=== PATIENT | female | born 1970 | race Caucasian/White ===

== ENCOUNTER 2016-05-17 06:36 | Day surgery (SDC) | payer OTHER ==
[~2016-05-17 06:36] MED LIST: CEFAZOLIN 1 GM/D5W RTU 1 GM/50 ML RTUPB IV PRN
[2016-05-17] MEDS ORDERED: MIDAZOLAM 2 MG/2 ML INJ ONE (06:44)
[2016-05-17] MEDS ORDERED: FENTANYL CITRATE INJ/PF 250 MCG/5 ML AMPULE ONE (06:44)
[2016-05-17] MEDS ORDERED: PROPOFOL INJ 200 MG/20 ML VIAL IV ONE ×2 (06:45→08:56)
[2016-05-17] MEDS ORDERED: ONDANSETRON HCL INJ/PF 4 MG/2 ML SDV ONE (06:45)
[2016-05-17] MEDS ORDERED: LIDOCAINE 0.5% INJ-PF (5 MG/ML) 50 ML SDV ONE (06:45)
[2016-05-17] MEDS ORDERED: LIDOCAINE 2% INJ (20 MG/ML) 20 ML MDV ONE (07:11)
[2016-05-17] MEDS ORDERED: NORMAL SALINE INJ/PF 0.9% 10 ML SDV ONE (07:12)
[2016-05-17] MEDS ORDERED: BUPIVACAINE HCL 0.5 % INJ/PF 30 ML SDV ONE (07:12)
[2016-05-17] MEDS: BACITRACIN INJ 50,000 UNIT VIAL ONE ×2 (09:15)
[2016-05-17] MEDS: POLYMYXIN B SULFATE INJ 500000 UNIT VIAL ONE ×2 (09:15)
--- NOTE | 2016-05-17 10:43 | SURGICARE DISCHARGE SUMMARY E ---
[facility] Discharge Summary NAME: TROY REDMAN AGE: 45Y ADMITTED: 05/17/2016 DISCHARGED: 05/17/2016 SURGICAL PROCEDURE: Correction of bunion via Jordan osteotomy with internal screw fixation, right foot. POSTOPERATIVE DIAGNOSIS: Hallux abductovalgus, right foot. SURGEON: Karol Ricks DPM QUICK TECHNICIAN: Ady Fitzgerald DPM HOSPITAL COURSE: Patient was admitted to [facility] with a chief complaint of a painful bunion on her right foot. She had a history of having this for a number of years. It was progressively getting worse and symptoms did not get better with conservative treatment. The patient underwent the above surgical procedure without any complications. She was given postoperative prescriptions for Dilaudid 4 mg #60, Phenergan 25 mg #30, and cephalexin 500 mg #4. She was dispensed a postoperative shoe and an ice pack and postoperative instructions. She was also instructed not to bear weight on the surgical foot. She was given a followup appointment in the doctor's office in 1 week, and the patient was discharged from [facility]. DICTATING PHYSICIAN: KAROL RICKS D.P.M. [id number] PHY#: [id number] ID: [id number] JOB#: [id number] ACCT: [id number] cc:KAROL RICKS DPM > MTDD
--- NOTE | 2016-05-17 11:23 | SURGICARE OPERATIVE REPORT E ---
[facility] Operative Report NAME: TROY REDMAN AGE: 45Y DATE OF SURGERY: 05/17/2016 ROOM: PREOPERATIVE DIAGNOSIS: HALLUX ABDUCTOVALGUS RIGHT FOOT. POSTOPERATIVE DIAGNOSIS: HALLUX ABDUCTOVALGUS RIGHT FOOT. OPERATION: Correction of bunion via Jordan osteotomy with internal screw fixation, right foot. SURGEON: PORFIRIO POLLOCK DPM DELIVERY ENGINEER: Ady Fitzgerald DPM DESCRIPTION OF PROCEDURE: Following induction of IV and regional local anesthesia, the right foot and leg were prepped and draped in the usual sterile manner. Pneumatic tourniquet was placed around the right ankle and inflated to 250 mmHg after exsanguination of the limb with the Esmarch bandage. The following surgical procedure was then performed: Correction of bunion via Jordan osteotomy with internal screw fixation, right foot. Attention was directed to the dorsal aspect of the first metatarsophalangeal joint of the right foot, where an approximately 5 cm dorsal linear incision was made. The incision was deepened via sharp dissection. All bleeders were clamped and Bovied as necessary for the purposes of hemostasis. A capsular incision was made in the same manner as the original skin incision. It was made medial to the extensor hallucis longus tendon. The capsule was reflected medially and laterally from the bone. Attention was then directed to the first interspace where utilizing blunt dissection, the transverse adductor tendon was identified, isolated and sharply incised. Attention was directed back to the hypertrophied median eminence of the first metatarsal head. Utilizing a Anastasia sagittal saw, this hypertrophied medial eminence was osteotomized parallel to the long axis of the bone and removed in total from the wound. An Ojrdan type osteotomy was then performed of the medial aspect of the first metatarsal head utilizing a Anastasia sagittal saw. This consisted of apex being distal, 2 wings, one plantar and one dorsal at approximately 60 degree angles to each other. These were amlhnno-mpr-qpucmul cuts. The capital fragment was then distracted and shifted laterally so that the head of the first metatarsal was now positioned over the sesamoid bones. The osteotomy was temporarily fixated with a 0.045 K-wire which was directed dorsal medial to plantar proximal. An x-ray was taken to make sure the K-wire was in good position and that the first metatarsophalangeal joint was in an anatomically correct position, which it was. A measure reamer was then threaded down the guidewire so that the hole could be reamed to accept the head of the screw and it was noted that a 20 mm, 3.0 cannulated screw would be needed. A 2.0 mm cannulated drill bit was then threaded down the guidewire and the distal aspect of the osteotomy was over drilled. The 20 mm 3.0 cannulated screw was then threaded down the guidewire and tightened down on itself. Because it was noted that the patient's bone was soft, a second screw would be used. This screw was placed lateral to the original screw. A 0.86 guidewire was used. It was directed from dorsal lateral to proximal plantar. An x-ray was taken and it was noted that this guidewire was in good position and was coming through the proximal cortex. The reamer measure was also threaded down the guidewire and it was noted that an 18 mm screw would be needed. A 1.7 mm drill bit was then threaded down the guidewire to overdrill the distal aspect of the osteotomy. The 18 mm 2.3 cannulated screw was threaded down the guidewire and it was noted that it could not be tightened all the way down. An x-ray was taken and it was noted that the guidewire had bent. The screw was removed and the bent portion of the guidewire at the plantar proximal aspect of the metatarsal was cut and removed and then the guidewire was removed. A new guidewire was threaded down and the 18 mm 2.3 cannulated screw was then threaded down the guidewire and tightened down on itself. X-rays were taken again. It was noted that the first metatarsophalangeal joint was in an anatomically correct position. It was also noted that the osteotomy was stably fixated. The redundant bone on the medial aspect of the first metatarsal was osteotomized parallel to the long axis of the bone and removed in toto from the wound. The medial aspect of the first metatarsal head was then rasped smooth. The area was then flushed with copious amounts of antibacterial saline solution. Bone wax was then applied to the medial aspect of the first metatarsal head. The capsule was then coapted and maintained utilizing simple interrupted sutures of 3-0 Vicryl. The extensor hallucis longus tendon was then lengthened via a Z-plasty lengthening and was sutured with a running locking suture of 3-0 FiberWire. The subcutaneous tissue was then coapted and maintained utilizing simple interrupted sutures of 4-0 Vicryl and the skin was coapted and maintained utilizing horizontal mattress sutures of 5-0 nylon. A final x-ray was taken and it was again noted that the sesamoids were in excellent position under the first metatarsal head and that the first metatarsophalangeal joint was in an anatomically correct position. The foot was then cleansed with an alcohol foam and a dry sterile dressing was then applied consisting of Carl silk, 4 by 4, Conform, Kerlix and Coban. The pneumatic tourniquet was released. It was noted that all digits were warm and viable. The patient was transferred to the recovery room. DICTATING PHYSICIAN: PORFIRIO POLLOCK D.P.M. [id number] PHY#: [id number] ID: [id number] JOB#: [id number] ACCT: [id number] cc:PORFIRIO POLLOCK DPM > KRISTEN
== END 2016-05-17 10:50 | disposition home or self-care (01) ==
LOC: SC 06:36
PROVIDERS: ATTEND Podiatrist Foot Surgery
PROC: 0QBN0ZZ Excision of Right Metatarsal, Open Approach (ICD-10-PCS; principal; 2016-05-17 07:30)
DX: M20.11 Hallux valgus (acquired), right foot (principal); K21.9 Gastro-esophageal reflux disease without esophagitis; Z88.0 Allergy status to penicillin; Z79.1 Long term (current) use of non-steroidal anti-inflammatories (NSAID); Z79.82 Long term (current) use of aspirin; Z88.8 Allergy status to other drugs, medicaments and biological substances; Z79.899 Other long term (current) drug therapy; Z86.73 Personal history of transient ischemic attack (TIA), and cerebral infarction without residual deficits
CPT/HCPCS: 28286; 73620; C1713 ×2; C1769 ×2; J2250; J3490 ×5; J0690; J3010; J2405; J2704; 01480

== ENCOUNTER → 2017-09-25 | Outpatient (CLI) | payer OTHER ==
--- NOTE | 2017-09-25 15:37 | WOMENS IMAGING REPORT ---
EXAM DESCRIPTION: BILAT SCREENING MAMMO W/CAD COMPLETED DATE/TIME: 09/25/2017 10:37 am REASON FOR STUDY: ROUTINE SCREENING;Z12.31 Z12.31 ENCNTR SCREEN MAMMOGRAM FOR MALIGNANT NEOPLASM OF RUY COMPARISON: 2012 TECHNIQUE: Standard craniocaudal and mediolateral oblique views of each breast recorded using digita l acquisition. LIMITATIONS: None. FINDINGS: No masses, calcifications or architectural distortion. No areas of suspicion. Read with the assistance of CAD. .[facility] - R2 Cenova Version 1.3 .[facility] Imaging - R2 Cenova Version 1.3 .[facility] - R2 Cenova Version 2.4 .[facility] [place] - R2 Cenova Version 2.4 .[facility] - R2 Tracing Lathe Set Up Operator Version 9.2 IMPRESSION: NORMAL MAMMOGRAM. BIRADS 1. BREAST DENSITY: b. There are scattered areas of fibroglandular density. BIRAD: 1 NEGATIVE RECOMMENDATION: ROUTINE SCREENING COMMENT: The patient has been notified of the results by letter per SA requirements. Additional no tification policies are in place for contacting patient with suspicious or incomplete findings. Quality ID #225: The [employer] [place] [employer] recommends an annual screening mammogram for women aged 40 years or over. This facility utilizes a reminder system to ensure that all patients receive reminder letters, and/or direct phone calls for appointments. This includes reminders for routine scr eening mammograms, diagnostic mammograms, or other Breast Imaging Interventions when appropriate. Th is patient will be placed in the appropriate reminder system. The [employer] [place] [employer] (ACR) has developed recommendations for screening MRI of the breast s in certain patient populations, to be used in conjunction with mammography. Breast MRI surveillanc e may be appropriate for women with more than 20% lifetime risk of developing breast cancer as deter mined by genetic testing, significant family history of the disease, or history of mantle radiation f or Hodgkins Disease. ACR Practice Guidelines 2008. TECHNICAL DOCUMENTATION: FINDING NUMBER: (1) ASSESSMENT: (1) JOB ID: [id number] [employer]- All Rights Reserved Reading location - IP/workstation name: [email or web address]
== END ==
LOC: WI 10:21
PROVIDERS: ATTEND Family Medicine
DX: Z12.31 Encounter for screening mammogram for malignant neoplasm of breast (principal)
CPT/HCPCS: 77067

== ENCOUNTER 2017-11-07 08:50 | Day surgery (SDC) | payer OTHER ==
[2017-11-07] MEDS ORDERED: POLYMYXIN B SULFATE INJ 500000 UNIT VIAL ONE (09:13)
[2017-11-07] MEDS ORDERED: LIDOCAINE 2% INJ (20 MG/ML) 20 ML MDV ONE (09:13)
[2017-11-07] MEDS ORDERED: BUPIVACAINE HCL 0.5 % INJ/PF 30 ML SDV ONE (09:13)
[2017-11-07] MEDS ORDERED: NORMAL SALINE INJ/PF 0.9% 10 ML SDV ONE (09:14)
[2017-11-07] MEDS ORDERED: BACITRACIN INJ 50,000 UNIT VIAL ONE (09:14)
[2017-11-07] MEDS ORDERED: FENTANYL CITRATE INJ/PF 100 MCG/2 ML AMPUL ONE ×2 (09:26)
[2017-11-07] MEDS ORDERED: PROPOFOL INJ 200 MG/20 ML VIAL IV ONE (09:26)
[2017-11-07] MEDS ORDERED: MIDAZOLAM 2 MG/2 ML INJ ONE (09:26)
[2017-11-07] MEDS ORDERED: DEXMEDETOMIDINE INJ 80 MCG/20 ML VIAL IV ONE (09:27)
[2017-11-07] MEDS ORDERED: BUPIVACAINE INJ/PF LIPOSOME/PF 266 MG/20 ML SDV ONE (10:19)
--- NOTE | 2017-11-07 11:58 | RADIOLOGY REPORT (SQ) ---
EXAM DESCRIPTION: NO CHG FLUORO; FOOT LEFT 2 VIEWS COMPLETED DATE/TIME: 11/07/2017 11:40 am REASON FOR STUDY: LT FOOT BUNIONECTOMY M20.12 HALLUX VALGUS (ACQUIRED), LEFT FOOT COMPARISON: 2014. FLUOROSCOPY TIME: 8 seconds 2 images saved to PACS. TECHNIQUE: Intra-operative images acquired during surgical procedure to evaluate progress. NUMBER OF IMAGES: 2 LIMITATIONS: None. FINDINGS: 2 images reveal pre-existing postoperative changes in the 2nd, 3rd, 4th distal metatarsals . New surgical changes related to great toe, status post bunionectomy and corrective osteotomy with solitary screw in place. Please correlate with operative note. IMPRESSION: IMAGE(S) OBTAINED DURING PROCEDURE. COMMENT: Quality ID 145: Final reports for procedures using fluoroscopy that document radiation exp osure indices, or exposure time and number of fluorographic images (if radiation exposure indices are not available) Please consult full operative report of the attending physician for description of the procedure. TECHNICAL DOCUMENTATION: JOB ID: [id number] [employer]- All Rights Reserved Reading location - IP/workstation name: [email or web address]
--- NOTE | 2017-11-07 11:58 | RADIOLOGY REPORT (SQ) ---
EXAM DESCRIPTION: NO CHG FLUORO; FOOT LEFT 2 VIEWS COMPLETED DATE/TIME: 11/07/2017 11:40 am REASON FOR STUDY: LT FOOT BUNIONECTOMY M20.12 HALLUX VALGUS (ACQUIRED), LEFT FOOT COMPARISON: 2014. FLUOROSCOPY TIME: 8 seconds 2 images saved to PACS. TECHNIQUE: Intra-operative images acquired during surgical procedure to evaluate progress. NUMBER OF IMAGES: 2 LIMITATIONS: None. FINDINGS: 2 images reveal pre-existing postoperative changes in the 2nd, 3rd, 4th distal metatarsals . New surgical changes related to great toe, status post bunionectomy and corrective osteotomy with solitary screw in place. Please correlate with operative note. IMPRESSION: IMAGE(S) OBTAINED DURING PROCEDURE. COMMENT: Quality ID 145: Final reports for procedures using fluoroscopy that document radiation exp osure indices, or exposure time and number of fluorographic images (if radiation exposure indices are not available) Please consult full operative report of the attending physician for description of the procedure. TECHNICAL DOCUMENTATION: JOB ID: [id number] [employer]- All Rights Reserved Reading location - IP/workstation name: [email or web address]
--- NOTE | 2017-11-07 12:21 | SURGICARE OPERATIVE REPORT E ---
[facility] Operative Report NAME: TROY REDMAN AGE: 47Y DATE OF SURGERY: 11/07/2017 ROOM: PREOPERATIVE DIAGNOSIS: HALLUX ABDUCTOVALGUS, LEFT FOOT. POSTOPERATIVE DIAGNOSIS: HALLUX ABDUCTOVALGUS, LEFT FOOT. OPERATION: Correction of bunion by Jordan osteotomy with internal fixation, left foot. SURGEON: PORFIRIO POLLOCK DPM AIRPORT DRIVER: Ady Fitzgerald DPM PROCEDURE: Following the induction of IV regional local anesthesia, the left foot and leg were prepped and draped in the usual sterile manner. A pneumatic tourniquet was placed around the left ankle and inflated to 250 mmHg, after exsanguination of the limb via Esmarch bandage. The following surgical procedures were then performed: Correction of bunion by Jordan osteotomy with internal fixation, left foot. Attention was directed to the dorsal aspect of the first metatarsophalangeal joint of the left foot, where an approximately 5-cm dorsolinear incision was made. The incision was deepened via sharp dissection. All bleeders were clamped and Bovied as necessary for the purposes of hemostasis. A capsule incision was made in the same manner as the original skin incision and was made medial to the extensor hallucis longus tendon. The incision was deepened via sharp dissection and it was reflected medially and laterally from the bone. Attention was then directed to the first interspace, where the transverse adductor tendon was identified and sharply incised utilizing tenotomy scissors. Attention was directed back to the medial aspect of the first metatarsal head. Utilizing a Oviceversa sagittal saw, the hypertrophied medial eminence was osteotomized parallel to the long axis of the bone and removed in total from the wound. An Jordan-type osteotomy was then performed with the apex being distal, the wings being plantar and dorsal at approximately 60 degrees. The dorsal wing was longer than the plantar. The hoaigyk-tqe-gwtkmxv osteotomy, the capital fragment was then distracted, shifted laterally, and impacted back on the bone, which sits at approximately 5-mm. The osteotomy was then temporarily fixated utilizing a 0.45 Guidewire which was directed from dorsal distal to plantar proximal. An x-ray was taken to make sure that the wire was in a good position and that the first metatarsophalangeal joint was now in a more anatomically corrected position. A reamer measure was threaded down the Guidewire and a hole was reamed to accept this head of the screw and it is noted that a 22-mm 3.0 cancellous screw would be needed. The distal aspect of the osteotomy was then drilled utilizing a 2.0 drill bit. The 22-mm 3.0 cancellous screw was then threaded down the guidewire and tightened down until the osteotomy was stably fixated. Another x-ray was taken to make sure that the screw was in a good position, which it was, and that the first metatarsophalangeal joint was still in the anatomically correct position. The redundant bone in the medial aspect of the first metatarsal head was osteotomized utilizing a Oviceversa sagittal saw and removed from the wound. The medial aspect of the bone was then rasped smooth utilizing a Oviceversa rasp. The site was then flushed with copious amounts of antibacterial saline solution. It was noted at this time that the inspection to the medial aspect of the first metatarsal head, that there was a cyst present and that this left the screw exposed. The defect was filled with DBX bone putty and then covered with bone wax. The capsule was then coapted and maintained utilizing simple interrupted sutures of 3-0 Vicryl. The extensor hallucis longus tendon was then tacked medially utilizing simple interrupted sutures of 3-0 Vicryl. The subcutaneous tissue was coapted and maintained utilizing simple interrupted sutures of 4-0 Vicryl. Then 20 mL of EXPAREL was then injected subcutaneously along the incision and along the surgical site. The skin was then coapted and maintained utilizing a horizontal mattress sutures of 5-0 Nylon. A dry sterile dressing was then applied, consisting of Carl silk, 4 x 4's, Conform, Kerlix and Coflex. The pneumatic tourniquet was released. It was noted that all digits were warm and viable. A 4 foot plaster splint was then applied to the foot. The patient was then transferred to the recovery room DICTATING PHYSICIAN: PORFIRIO POLLOCK D.P.M. [id number] PHY#: [id number] ID: [id number] JOB#: [id number] ACCT: [id number] cc:PORFIRIO POLLOCK DPM >
--- NOTE | 2017-11-07 12:25 | SURGICARE DISCHARGE SUMMARY E ---
[facility] Discharge Summary NAME: TROY REDMAN AGE: 47Y ADMITTED: 11/07/2017 DISCHARGED: 11/07/2017 SURGICAL PROCEDURE: Correction of bunion by Jordan osteotomy with internal fixation, left foot. POSTOPERATIVE DIAGNOSIS: Hallux valgus, left foot. SURGEON: PORFIRIO POLLOCK DPM TRIM SAWYER: CASPER CHOW DPM HOSPITAL COURSE: The patient was admitted to [facility] with a chief complaint of a painful bunion on her left foot. She had been taking Celebrex but she was still having pain and would like to have the problem surgically corrected. She underwent the above surgical procedure without any complications and was transferred to the recovery room. Patient was discharged with an ice pack, postoperative instructions including no weightbearing on the surgical foot. Postoperative prescriptions is for Percocet 5/325 mg, #40; cephalexin 500 mg, #4. She was given followup appointment in the doctor's office in 1 week and the patient was discharged from [facility]. DICTATING PHYSICIAN: PORFIRIO POLLOCK D.P.M. [id number] PHY#: [id number] ID: [id number] JOB#: [id number] ACCT: [id number] cc:PORFIRIO POLLOCK DPM >
== END 2017-11-07 12:24 | disposition home or self-care (01) ==
LOC: SC 08:50
PROVIDERS: ATTEND Podiatrist Foot Surgery
DX: M20.12 Hallux valgus (acquired), left foot (principal); K21.9 Gastro-esophageal reflux disease without esophagitis; M19.90 Unspecified osteoarthritis, unspecified site; F17.210 Nicotine dependence, cigarettes, uncomplicated; Z86.73 Personal history of transient ischemic attack (TIA), and cerebral infarction without residual deficits; Z79.899 Other long term (current) drug therapy; Z79.1 Long term (current) use of non-steroidal anti-inflammatories (NSAID); Z88.0 Allergy status to penicillin; Z88.8 Allergy status to other drugs, medicaments and biological substances; Z79.82 Long term (current) use of aspirin
CPT/HCPCS: 73620; 28296; C1713; C1769; C9359; J2250; J3490 ×6; J0690; J3010; J2704; C9290; 01480

== ENCOUNTER → 2019-11-10 | Outpatient (CLI) | payer OTHER ==
[2019-11-10 11:59] LABS: ABSOLUTE BASOPHILS # (AUTO) 0.1 10^3/uL (0.0-0.2); ABSOLUTE EOSINOPHILS # (AUTO) 0.3 10^3/uL (0.0-0.6); ABSOLUTE LYMPHOCYTES (AUTO) 1.6 10^3/uL (0.5-4.7); ABSOLUTE MONOCYTES (AUTO) 0.4 10^3/uL (0.1-1.4); ABSOLUTE NEUT (AUTO) 3.5 10^3/uL (1.7-8.2); BASOPHILS % (AUTO) 1.9 % (0-2); EOSINOPHILS % (AUTO) 4.6 % (0-6); HEMATOCRIT 43.3 % (36.0-47.0); HEMOGLOBIN 14.8 g/dL (12.0-15.5); LYMPHOCYTES % (AUTO) 27.1 % (13-45); MEAN CORPUSCULAR HEMOGLOBIN 31.4 pg (27.0-33.4); MEAN CORPUSCULAR HGB CONC 34.1 g/dL (32.0-36.0); MEAN CORPUSCULAR VOLUME 92 fl (80-97); MONOCYTES % (AUTO) 6.6 % (3-13); PLATELET COUNT 287 10^3/uL (150-450); RED BLOOD COUNT 4.71 10^6/uL (3.72-5.28); RED CELL DISTRIBUTION WIDTH 12.5 % (11.5-14.0); SEGMENTED NEUTROPHILS % (AUTO) 59.8 % (42-78); TOTAL CELLS COUNTED % (AUTO) 100 %; WHITE BLOOD COUNT 5.9 10^3/uL (4.0-10.5)
[2019-11-10 12:04] LABS: ALBUMIN 4.4 g/dL (3.5-5.0); ALKALINE PHOSPHATASE 64 U/L (38-126); ANION GAP 5 (5-19); ASPARTATE AMINO TRANSFERASE 21 U/L (14-36); BILIRUBIN,DIRECT 0.1 mg/dL (0.0-0.4); BILIRUBIN,TOTAL 0.4 mg/dL (0.2-1.3); BLOOD UREA NITROGEN 9 mg/dL (7-20); CALCIUM 10.3 mg/dL (8.4-10.2); CARBON DIOXIDE 31 mmol/L (22-30); CHLORIDE 100 mmol/L (98-107); GLUCOSE 86 mg/dL (75-110); POTASSIUM 4.5 mmol/L (3.6-5.0); TOTAL PROTEIN 6.9 g/dL (6.3-8.2); TRIGLYCERIDES 113 mg/dL (<150)
[2019-11-10 12:15] LABS: DIRECT LDL 92 mg/dL (<100)
== END ==
LOC: OD 10:58
PROVIDERS: ATTEND Psychiatry & Neurology Psychiatry
DX: Z51.81 Encounter for therapeutic drug level monitoring (principal); Z79.899 Other long term (current) drug therapy
CPT/HCPCS: 36415; 80053; 80061; 84443; 85025

== ENCOUNTER 2019-11-13 07:00 | Day surgery (SDC) | payer OTHER ==
[2019-11-13] MEDS ORDERED: PROPOFOL INJ 200 MG/20 ML VIAL IV ONE (07:48)
--- NOTE | 2019-11-13 08:30 | Operative Report ---
Operative Report DATE OF SURGERY: 11/13/19 Operative Report: The risks benefits and alternatives of the procedure explained to the patient in detail and informed consent is obtained.A GIF Olympus video scope was inserted into the patient's mouth and hypopharynx, the esophagus is identified intubated and insufflated ,the scope was then advanced through the esophagus stomach and duodenum ,retroflexion maneuver is done, the esophagus stomach and first and second portions of the duodenum examined PREOPERATIVE DIAGNOSIS: Gastroesophageal reflux disease POSTOPERATIVE DIAGNOSIS: Esophagitis status post biopsy rule out Fisher's. gastritis status post biopsy Helicobacter pylori OPERATION: EGD with biopsy SURGEON: MARY SANTACRUZ ANESTHESIA: LMAC TISSUE REMOVED OR ALTERED: As noted above. COMPLICATIONS: None. ESTIMATED BLOOD LOSS: None. INTRAOPERATIVE FINDINGS: As noted above. PROCEDURE: Patient tolerated the procedure well. No immediate postprocedure complications are noted. Patient is discharged in good condition. Discharge date 11/13/2019. Discharge diet: Regular. Discharge activity: Regular. 2 to 3-week follow-up to discuss findings. Patient is instructed call the office or proceed to the emergency room should there be any further problems or questions. Wait on the pathology.
[2019-11-13 09:06] VITALS: BP 119/67
== END 2019-11-13 09:08 | disposition home or self-care (01) ==
LOC: END 07:00
PROVIDERS: ATTEND Internal Medicine Gastroenterology
DX: K21.0 Gastro-esophageal reflux disease with esophagitis (principal); K29.50 Unspecified chronic gastritis without bleeding; Z86.73 Personal history of transient ischemic attack (TIA), and cerebral infarction without residual deficits; Z88.0 Allergy status to penicillin; Z87.891 Personal history of nicotine dependence; Z79.82 Long term (current) use of aspirin; Z03.818 Encounter for observation for suspected exposure to other biological agents ruled out
CPT/HCPCS: 43239; 87635; 88305 ×2; 00731; J2704; C9803; 731